=== PATIENT | female | born 1945 | race American Indian/Alaskan Native ===

== ENCOUNTER 2017-11-20 14:20 | Outpatient (CLI) | payer MEDICARE ==
--- NOTE | 2017-11-20 15:29 | Mammography Report ---
BILATERAL MAMMOGRAM with CAD: HISTORY: Cancer screening. Comparison study is dated November 13, 2016. FINDINGS: There are scattered fibroglandular densities (approximately 25%-50% glandular). No mass, distortion, suspicious calcification, or skin change is seen. IMPRESSION: Negative mammogram. There is no mammographic evidence of malignancy. RECOMMENDATION: Follow-up per ACS guidelines. BI-RADS CATEGORY: 1 = Negative ACR BI-RADS MAMMOGRAPHIC CODES: 0 = Needs additional imaging evaluation; 1 = Negative; 2 = Benign; 3 = Probably benign; 4 = Suspicious; 5 = Malignant; 6 = Known biopsy-proven malignancy COMMENT: 1. Dense breast tissue, i.e., adenosis, fibrocystic changes, etc., may obscure an underlying neoplasm. 2. Approximately 10% of cancers are not detected with mammography. 3. A negative mammography report should not delay biopsy if a clinically suspicious mass is present. COMMENT: Patient follow-up letters are generated in [employer].
== END 2017-11-20 14:21 | disposition home or self-care (01) ==
LOC: SPVWC 14:20
PROVIDERS: ATTEND Family Medicine
DX: Z12.31 Encounter for screening mammogram for malignant neoplasm of breast (principal); J44.9 Chronic obstructive pulmonary disease, unspecified; I10 Essential (primary) hypertension
CPT/HCPCS: 77067; G0202

== ENCOUNTER 2019-12-23 15:38 | Outpatient (CLI) | payer MEDICARE ==
--- NOTE | 2019-12-23 16:30 | Mammography Report ---
BILATERAL DIGITAL SCREENING MAMMOGRAM WITH CAD INDICATION: Routine screening mammography. TECHNIQUE: Digital bilateral 2D mammography was obtained in the craniocaudal and mediolateral obliq ue projections. This examination was interpreted with the benefit of Computer-Aided Detection analysi s. COMPARISON: 11/24/2018, 11/20/2017, 11/13/2016. FINDINGS: Breast Density: There are scattered areas of fibroglandular density. No suspicious mass, microcalcifications, or architectural distortion. IMPRESSION: No evidence of breast malignancy. Recommend routine screening mammogram in one year. BI-RADS Category 1: Negative. No mammographic evidence of malignancy. Recommend routine screening m ammography in one year. A "normal" or negative report should not discourage follow up or biopsy of a clinically significant f inding. A written summary of these findings will be mailed to the patient. The patient will be entered into a mammography reporting system which will generate a reminder letter for the patient's next appointmen t at the appropriate interval. The [employer] recommends yearly mammograms starting at age 40 and continuing as l siai as a woman is in good health. Breast MRI is recommended for women with an approximate 20-25% or greater lifetime risk of breast cancer, including women with a strong family history of breast or ova henrietta cancer or who have been treated for Hodgkin's disease. Signer Name: Chiki Zuniga MD Signed: 12/23/2019 4:26 PM Workstation Name: [id number]
== END 2019-12-23 15:39 | disposition home or self-care (01) ==
LOC: SPVWC 15:38
PROVIDERS: ATTEND Family Medicine
DX: Z12.31 Encounter for screening mammogram for malignant neoplasm of breast (principal); N64.89 Other specified disorders of breast
CPT/HCPCS: 77067

== ENCOUNTER 2020-11-21 13:41 | Outpatient (CLI) | payer MEDICARE | END 2020-11-21 13:42 | disposition home or self-care (01) | LOC: SPVWC 13:41 | PROVIDERS: ATTEND Family Medicine | DX: M81.8 Other osteoporosis without current pathological fracture (principal) | CPT/HCPCS: 77080 ==

== ENCOUNTER 2021-03-17 10:58 | Outpatient (CLI) | payer MEDICARE ==
--- NOTE | 2021-03-17 18:45 | Mammography Report ---
DIGITAL SCREENING MAMMOGRAM WITH CAD, 03/17/2021 CLINICAL INFORMATION / INDICATION: Routine screening mammography. TECHNIQUE: Digital bilateral 2D mammography was obtained in the craniocaudal and mediolateral obliqu e projections. This examination was interpreted with the benefit of Computer-Aided Detection analysis . COMPARISON: 12/23/2019, 11/24/2018 FINDINGS: Breast Density: There are scattered areas of fibroglandular density. No dominant mass, suspicious calcifications, or architectural distortion in either breast. IMPRESSION: No mammographic evidence of malignancy. Follow up recommendation: Routine yearly BI-RADS Category 1: Negative. A "normal" or negative report should not discourage follow up or biopsy of a clinically significant f inding. A written summary of these findings will be mailed to the patient. The patient will be entered into a mammography reporting system which will generate a reminder letter for the patient's next appointmen t at the appropriate interval. The [employer] recommends yearly mammograms starting at age 40 and continuing as l isai as a woman is in good health. Breast MRI is recommended for women with an approximate 20-25% or greater lifetime risk of breast cancer, including women with a strong family history of breast or ova henrietta cancer or who have been treated for Hodgkin's disease. Signer Name: Sung Miller MD Signed: 03/17/2021 6:40 PM Workstation Name: [id number]
== END 2021-03-17 10:59 | disposition home or self-care (01) ==
LOC: SPVWC 10:58
PROVIDERS: ATTEND Family Medicine
DX: Z12.31 Encounter for screening mammogram for malignant neoplasm of breast (principal)
CPT/HCPCS: 77067

== ENCOUNTER 2022-03-21 15:07 | Outpatient (CLI) | payer MEDICARE ==
--- NOTE | 2022-03-23 10:06 | Mammography Report ---
DIGITAL SCREENING MAMMOGRAM WITH CAD, 03/21/2022 CLINICAL INFORMATION / INDICATION: Routine screening mammography. Z12.31 TECHNIQUE: Digital bilateral 2D mammography was obtained in the craniocaudal and mediolateral obliqu e projections. This examination was interpreted with the benefit of Computer-Aided Detection analysis . COMPARISON: 03/17/2021, 12/23/2019 FINDINGS: Breast Density: There are scattered areas of fibroglandular density. No dominant mass, suspicious calcifications, or architectural distortion in the right breast. There is an enlarging nodule in the 3:00 position of the left breast which measures approximately 1 c m. This measured 6 mm previously. There are additional stable nodules in the left breast. IMPRESSION: There is an enlarging nodule in the left breast the 3:00 position in the anterior depth w hich has shown increase in size. Follow up recommendation: Ultrasound BI-RADS Category 0: INCOMPLETE. Needs additional imaging evaluation and/or prior mammograms for laron ricardo. A "normal" or negative report should not discourage follow up or biopsy of a clinically significant f inding. A written summary of these findings will be mailed to the patient. The patient will be entered into a mammography reporting system which will generate a reminder letter for the patient's next appointmen t at the appropriate interval. The [employer] recommends yearly mammograms starting at age 40 and continuing as l isai as a woman is in good health. Breast MRI is recommended for women with an approximate 20-25% or greater lifetime risk of breast cancer, including women with a strong family history of breast or ova henrietta cancer or who have been treated for Hodgkin's disease. Signer Name: Wade Mauricio MD Signed: 03/23/2022 10:01 AM Workstation Name: [id number]
== END 2022-03-21 15:08 | disposition home or self-care (01) ==
LOC: SPVWC 15:07
PROVIDERS: ATTEND Family Medicine
DX: Z12.31 Encounter for screening mammogram for malignant neoplasm of breast (principal); N63.21 Unspecified lump in the left breast, upper outer quadrant
CPT/HCPCS: 77067

== ENCOUNTER 2022-04-02 09:58 | Outpatient (CLI) | payer MEDICARE ==
--- NOTE | 2022-04-02 11:18 | Ultrasound Report ---
ULTRASOUND BREAST LEFT LIMITED, 04/02/2022 CLINICAL INFORMATION / INDICATION: N63.20 LEFT BREAST LUMP. Patient presents as a callback from [facility] mammogram for further evaluation of an enlarging nodule in the left breast. TECHNIQUE: Targeted ultrasound evaluation was performed of the area of interest. COMPARISON: Prior mammogram 03/21/2022 FINDINGS: Corresponding with the mammographic finding, there is an oval circumscribed hypoechoic mass versus co mplicated cyst with internal septations in the left breast 3:00 position located 3 cm the nipple, jaya suring up to 10 x 5 x 6 mm. The mass is parallel. Foci of peripheral vascularity are demonstrated. IMPRESSION: 1. An oval circumscribed hypoechoic mass versus complicated cyst with internal septations corresponds with the mammographic finding. Because this is increasing size, this is considered suspicious for ma lignancy, and ultrasound-guided biopsy is recommended. Follow up recommendation: Biopsy BI-RADS Category 4: SUSPICIOUS FOR MALIGNANCY. A normal or "negative" report should not preclude biopsy or follow-up of a clinically suspicious find ing. Signer Name: Jovita Gallardo MD Signed: 04/02/2022 11:13 AM Workstation Name: [id number]
== END 2022-04-02 09:59 | disposition home or self-care (01) ==
LOC: US 09:58
PROVIDERS: ATTEND Physician Assistant
DX: N63.20 Unspecified lump in the left breast, unspecified quadrant (principal)